=== PATIENT | male | born 1985 | race Caucasian/White ===

== ENCOUNTER 2017-06-23 11:01 | Inpatient (IN) | payer OTHER ==
[~2017-06-23] VITALS: Ht 182.9 cm; Wt 71.1 kg
[2017-06-23 11:38] VITALS: BP 115/73; PULSE 65; RESP 18; TEMP 98.2; O2SAT 97
[2017-06-23] MEDS ORDERED: LOSA25TA PO (11:41)
[2017-06-23] MEDS ORDERED: ASPI81CH6 CHEW (11:41)
[2017-06-23] MEDS ORDERED: CARV3.125 PO (11:41)
[2017-06-23] MEDS ORDERED: CARA1TAB6 PO (11:41)
[2017-06-23] MEDS ORDERED: FAMO1TAB37 PO (11:41)
--- NOTE | 2017-06-23 12:57 | PD ---
HPI Chief Complaint: Psychiatric Symptoms Time Seen by Provider: 12:30 Travel History International Travel<30 days: No Contact w/Intl Traveler<30days: No Traveled to known affect area: No History of Present Illness HPI 31-year-old male presents to the emergency department under [place] act. He was transported here from [facility] after being medically cleared with complaint of chest pain. He was first brought to [place] under [place] act in with a complaint of chest pain was then transported to [facility]. I reviewed his labs and imaging and all are unremarkable. He has history of nonischemic cardiomyopathy with an EF of 40%, polysubstance abuse secondary to cocaine and marijuana, mild CAD, history of congenital heart disease with multiple heart surgeries as a child, anxiety, depression, noncompliance. According to law enforcement report the patient "stated he needed help and he cut himself with a broken beer bottle." On my examination the patient states he is no longer feeling suicidal. He denies homicidal ideations. He does have history of attempted suicide by hanging himself and cutting himself. He says he has been suicidal on and off for the past year. He denies current SI or plan. He denies visual or auditory hallucinations. Reports using cocaine, marijuana, Xanax, alcohol. Symptoms onset when his 8 year relationship ended the other day. Symptoms were exacerbated by a breakup. No known relieving factors. Symptoms are moderate to severe in severity. He has no current emergent medical complaints. He denies chest pain, shortness of breath, abdominal pain, fevers, vomiting. No other modifying factors or associated signs and symptoms. PFSH Past Medical History Bipolar Disorder: Yes Anxiety: Yes Depression: Yes Cardiovascular Problems: Yes Diminished Hearing: No Hypertension: Yes Immunizations Current: Yes Past Surgical History Other Surgery: Yes (CARDIAC SURGERIES X 4 CHILD FOR HEART DEFECT) Social History Alcohol Use: Yes (4 BEERS PER DAY) Tobacco Use: No Substance Use: Yes (ETOH, MARIJUANNA, XANAX, COCAINE) Allergies-Medications (Allergen,Severity, Reaction): Coded Allergies: No Known Allergies (Unverified , 06/23/17) Reported Meds & Prescriptions Reported Meds & Active Scripts Active Reported Carafate (Sucralfate) 1 Gram Tab 1 Gm PO DAILY On empty stomach Pepcid (Famotidine) 20 Mg Tab 20 Mg PO DAILY Losartan (Losartan Potassium) 25 Mg Tab 25 Mg PO DAILY Coreg (Carvedilol) 3.125 Mg Tab 3.125 Mg PO BID Aspirin Low Dose (Aspirin) 81 Mg Chew 81 Mg CHEW DAILY Review of Systems Except as stated in HPI: all other systems reviewed are Neg Physical Exam Narrative GENERAL: Well-nourished, well-developed male patient, in no acute distress SKIN: Warm and dry. HEAD: Atraumatic. Normocephalic. EYES: Pupils equal and round. ENT: Mucosa pink and moist. NECK: Supple. Trachea midline. CARDIOVASCULAR: Regular rate and rhythm. No murmur appreciated. RESPIRATORY: No accessory muscle use. Clear to auscultation. Breath sounds equal bilaterally. GASTROINTESTINAL: Abdomen soft, non-tender, nondistended. Hepatic and splenic margins not palpable. Bowel sounds are active 4 quadrants. MUSCULOSKELETAL: No obvious deformities. No clubbing. No cyanosis. No edema. NEUROLOGICAL: Awake and alert. Oriented 3. No obvious cranial nerve deficits. Motor grossly within normal limits. Normal speech. Moves all extremities. 5/5 strength to all extremities. PSYCHIATRIC: No delusional thought processes. No hallucinations. Data Data Last Documented VS Vital Signs Date Time Temp Pulse Resp B/P (MAP) Pulse Ox O2 Delivery O2 Flow Rate FiO2 06/23/17 11:38 98.2 65 18 115/73 (87) 97 Room Air Orders Orders Psych Screen (06/23/17 12:00) Diet Regular Basic (06/23/17 Lunch) MDM Medical Decision Making Medical Screen Exam Complete: Yes Emergency Medical Condition: Yes Medical Record Reviewed: Yes Differential Diagnosis Depression, anxiety, suicide ideation, medical clearance for psychiatric admission Narrative Course Patient presents under a Broussard act. Physical examination and vital signs are essentially unremarkable. Patient has no medical complaints to report. Psych screen has been ordered. Labs and imaging were reviewed from [facility] and are all unremarkable. Patient is medically cleared for psychiatric evaluation and disposition. Diagnosis Primary Impression: Medical clearance for psychiatric admission Condition: Stable Azra Baugh Jun 23, 2017 12:57
[2017-06-23 17:15] VITALS: BP 106/69; PULSE 82; RESP 18
[2017-06-23 22:54] VITALS: BP 115/63; PULSE 85; RESP 18; TEMP 98.5; O2SAT 97
[2017-06-24 03:13] VITALS: BP 110/63; PULSE 92; RESP 18; TEMP 98.8; O2SAT 99
[2017-06-24 06:57] VITALS: BP 120/66; PULSE 75; RESP 18; TEMP 98.3; O2SAT 96
--- NOTE | 2017-06-24 08:18 | HHI.HP ---
Provisional Diagnosis Admission Date 06/24/2017 Bronson I. 1. Bipolar disorder, presently depressed, moderate 2. Polysubstance abuse Bronson II. Deferred Certification of Person's Competence To Provide Express and Informed Consent I have personally examined Prakash Peguero , a person being served at [facility] on, Jun 24, 2017 08:18. Express and informed consent means consent voluntarily given in writing, by a competent person, after sufficient explanation and disclosure of the subject matter involved to enable the person to make a knowing and willful decision without any element of force, fraud, deceit, duress, or other form of constraint or coercion. This person is 18 years of age or older, is not now known to be incompetent to consent to treatment with a guardian advocate, and does not have a health care surrogate or proxy currently making medical treatment decisions. I have found this person to be one of the following: [x] Competent to provide express and informed consent, as defined above, for voluntary admission to this facility and is competent to provide express and informed consent for treatment. He/she has the consistent capacity to make well reasoned, willful, and knowing decisions concerning his or her medical or mental health treatment. The person fully and consistently understands the purpose of the admission for examination/placement and is fully capable of personally exercising all rights assured under [place] Incompetent to provide express and informed consent to voluntary admission, and this is incompetent to provide express and informed consent to treatment. The person must be transferred to involuntary status and a petition for a guardian advocate filed with the Circuit Court. [] Refusing to provide express and informed consent to voluntary admission but is competent to provide express and informed consent for treatment. The person must be discharged or transferred to involuntary status. Form shall be completed within 24 hours of a person's arrival at the receiving facility and filed in the clinical record of each person: 1. Admitted on a voluntary basis 2. Permitted to provide express and informed consent to his/her own treatment 3. Allowed to transfer from involuntary to voluntary status 4. Prior to permitting a person to consent to his or her own treatment after having been previously found incompetent to consent to treatment. History of Present Illness Capacity: Has Capacity Psych Chief Complaint: Depression, SI HPI Mr. Peguero is a 31-year-old male with a reported history of bipolar disorder and anxiety who presents in transfer from [facility] under a Broussard act. Documentation from [facility] reviewed. Patient apparently presented there initially with chest pain associated with substance use including cocaine. Patient was evaluated by cardiology of [facility] and cleared. Patient does have a history of congenital heart defect status post surgical repair. Patient apparently reported that he had cut himself with a beer bottle prior to admission and so was Broussard acted and sent here to [facility]. Reviewing our electronic medical record, it appears this is patient's first visit to [facility]. Patient seen and examined. Chart reviewed. Case discussed with nursing staff. On my examination today, the patient presents as dysphoric, intermittently tearful. He says that he went through a tough breakup with his girlfriend of 8 years around [place] time. He also has been struggling with joblessness. He has been feeling increasingly depressed with some sleep disturbance. He articulates hopeless and worthless feelings. He says that he was feeling suicidal last week and cut himself superficially with a broken beer bottle. He denies any suicidal ideation presently. Denies any homicidal ideation. Denies any audiovisual hallucinations. No delusional material. The patient does not describe any hypomanic or manic symptoms presently but does describe a history of irritability possibly consistent with hypomania or gene, last occurring in March of last year. The remainder of the psychiatric ROS is negative. The patient has no physical complaints at this time. Past psychiatric history: The patient reports previous psychiatric diagnoses as noted above. He cannot recall any previous medication trials besides trazodone. He is not currently under the care of a psychiatrist. He was admitted most recently at [facility] last year. Patient reports that most recent suicide attempt was by cutting as noted above, and the patient reports that he has a history of previous suicide attempts by cutting. Family history: The patient denies a family history of serious mental illness or suicide. Chemical dependency history: The patient admits to use of Xanax, alcohol, powder cocaine and cannabis. Social history: The patient reports that he recently ended a long-term relationship. He has no children. He has a 10th grade education. He does not work. He denies any active legal issues but has had legal issues in the past. Denies any access to guns or firearms. Denies any history. He lives with his mother and sister and provides contact information for them. Mother Marla is at [phone] and sister Bri is at [phone]. Review of Systems Except as stated in HPI: all other systems reviewed are Neg Past Family Social History Coded Allergies: No Known Allergies (Unverified , 06/23/17) Past Medical History Includes a history of congenital heart defect. Takes medications as listed below. Reported Medications Sucralfate (Carafate) 1 Gram Tab, 1 GM PO DAILY for Ulcer Prevention, #120 TAB 0 Refills On empty stomach 06/23/17 Famotidine (Pepcid) 20 Mg Tab, 20 MG PO DAILY, #60 TAB 0 Refills 06/23/17 Losartan (Losartan) 25 Mg Tab, 25 MG PO DAILY for Blood Pressure Management, # 30 TAB 0 Refills 06/23/17 Carvedilol (Coreg) 3.125 Mg Tab, 3.125 MG PO BID, #60 TAB 0 Refills 06/23/17 Aspirin (Aspirin Low Dose) 81 Mg Chew, 81 MG CHEW DAILY, TAB 0 Refills 06/23/17 Patient's Strengths (min. 2) In a monitored setting. Verbally fluent. Physical Exam Physical exam was completed by provider at outside hospital. On my examination today, the patient appears to be in no acute physical distress. No motor abnormalities noted. No signs of intoxication or withdrawal noted. I do note several very superficial scratches on his left forearm. Labs and vitals reviewed: Vital Signs Vital Signs Date Time Temp Pulse Resp B/P (MAP) Pulse Ox O2 Delivery O2 Flow Rate FiO2 06/24/17 06:57 98.3 75 18 120/66 (84) 96 Room Air Lab Results Laboratories from outside hospital reviewed: CBC reveals mild normocytic anemia with hemoglobin of 11.6. Urine toxicology positive for benzos, cocaine and cannabinoids. CMP reveals mild hypernatremia at 146, mild hypokalemia at 3.2 and mild hypocalcemia at 7.6. Renal and hepatic function are unremarkable. Alcohol level was 105. Tylenol and salicylate level were undetectable. EKG was reportedly performed at outside hospital and was read as normal sinus rhythm , but the waveform is not available for my review nor are any intervals listed. Mental Status Examination Appearance: Appropriate Consciousness: Alert Orientation: x4 Motor Activity: Other (no motor abnormalities noted) Speech: Unremarkable Language: Adequate Fund of Knowledge: Adequate Attention and Concentration: Adequate Memory: Unremarkable Mood: Sad Affect: Sad Thought Process & Associations: Intact, Logical, Linear Thought Content: Appropriate Hallucination Type: None Delusion Type: None Suicidal Ideation: No Suicidal Plan: No Suicidal Intention: No Homicidal Ideation: No Homicidal Plan: No Homicidal Intention: No Insight: Fair Judgment: Impulsive Assessment & Plan Problem List: (1) Bipolar disorder, current episode depressed, severe, without psychotic features ICD Codes: F31.4 - Bipolar disorder, current episode depressed, severe, without psychotic features (2) Polysubstance abuse ICD Codes: F19.10 - Other psychoactive substance abuse, uncomplicated Assessment & Plan 31-year-old male with psychiatric history as detailed above who presents in transfer from outside hospital under a Broussard act. On my examination today, the patient reports several months of worsening mood with recent onset of suicidal ideation and an effort at self injury by cutting his left forearm. Patient denies suicidal ideation presently but remains depressed. This depression coupled with his substance use issues confer risk for ongoing self-harm. Psychiatric hospitalization is indicated presently for safety, observation and stabilization. Admit inpatient. Voluntary status. Check EKG for QTC. Check CBC and CMP in the morning to follow-up laboratory abnormalities. Check TSH. For mood stabilization and initiate Seroquel 50 mg at bedtime with plans to titrate to effect. Patient does have a history of cardiac issues, but these are apparently structural and EKG was read as normal sinus rhythm. I have left a nursing order to hold the Seroquel if the QTC is abnormal. Atarax as needed for anxiety, Benadryl as needed for EPS or sleep. CIWA scale with Ativan for the management of any withdrawal. Seizure precautions. Thiamine and folate. R /B/A for all medications discussed with patient. Vitals every shift. Counselor to see and obtain collateral. Disposition planning. Estimated length of stay: 3-5 days. Discharge Planning Pending psychiatric stabilization Request HC Surrog/Guard Advoc?: No Zander Son MD Jun 24, 2017 08:18
[2017-06-24] MEDS ORDERED: ALUMINUM/MAGNESIUM/SIMETH 30 ML CUP PO PRN (08:30)
[2017-06-24] MEDS ORDERED: MAGNESIUM HYDROXIDE SUSP 30 ML CUP PO PRN (08:30)
[2017-06-24] MEDS ORDERED: ACETAMINOPHEN 325 MG TAB PO PRN (08:30)
[2017-06-24] MEDS ORDERED: LORazepam 2 MG TAB PO PRN (08:30)
[2017-06-24] MEDS ORDERED: hydrOXYzine HCL 50 MG TAB PO PRN (08:30)
[2017-06-24] MEDS ORDERED: NICOTINE 21 MG/24 HR PATCH T-DERMAL PRN (08:30)
[2017-06-24] MEDS ORDERED: LORazepam 1 MG TAB PO PRN (08:30)
[2017-06-24] MEDS ORDERED: diphenhydrAMINE HCL 50 MG/ML VIAL IM PRN (08:30)
[2017-06-24] MEDS ORDERED: FLUMAZENIL 0.5 MG/5 ML VIAL IV PUSH PRN (08:30)
[2017-06-24] MEDS ORDERED: LORazepam 2 MG/ML VIAL IV PUSH PRN ×4 (08:30)
[2017-06-24] MEDS: FAMOTIDINE 20 MG TAB PO SCH (10:22)
[2017-06-24] MEDS: ASPIRIN 81 MG CHEW TAB CHEW SCH (10:23)
[2017-06-24] MEDS: FOLIC ACID 1 MG TAB PO SCH (10:23)
[2017-06-24] MEDS: MULTIVITAMINS/MINERALS THERAPEUTIC TAB PO SCH (10:24)
[2017-06-24] MEDS: THIAMINE HCL 100 MG TAB PO SCH (10:24)
[2017-06-24] MEDS: SUCRALFATE 1 GM TAB PO SCH (11:00)
[2017-06-24 12:16] VITALS: BP 123/72; PULSE 81; RESP 19; TEMP 98; O2SAT 99
[2017-06-24] MEDS: CARVEDILOL 3.125 MG TAB PO SCH ×2 (12:45→21:21)
[2017-06-24] MEDS: LOSARTAN 25 MG TAB PO SCH (12:45)
[2017-06-24] MEDS ORDERED: QUEtiapine FUMARATE 100 MG TAB PO SCH (21:00)
[2017-06-25 07:24] LABS: AUTOMATED NEUTROPHIL # 4.6 TH/MM3 (1.8-7.7); BASOPHIL # 0.1 TH/MM3 (0-0.2); BASOPHIL % 1.3 % (0.0-2.0); EOSINOPHIL # 0.4 TH/MM3 (0-0.4); HEMOGLOBIN 16.2 GM/DL (13.0-17.0); LYMPH % 24.4 % (9.0-44.0); LYMPHOCYTE # 1.9 TH/MM3 (1.0-4.8); MEAN CELL VOLUME 89.3 FL (80.0-100.0); MEAN CORPUSCULAR HEMOGLOBIN 31.3 PG (27.0-34.0); MEAN CORPUSCULAR HGB CONC 35.1 % (32.0-36.0); MEAN PLATELET VOLUME 8.1 FL (7.0-11.0); NEUT % 57.3 % (16.0-70.0); PLATELET COUNT 201 TH/MM3 (150-450); RED BLOOD COUNT 5.15 MIL/MM3 (4.50-5.90); RED CELL DISTRIBUTION WIDTH 13.6 % (11.6-17.2)
[2017-06-25 07:44] LABS: ALBUMIN 4.1 GM/DL (3.4-5.0); ALT (GPT) 22 U/L (12-78); AST (GOT) 20 U/L (15-37); BICARBONATE 29.3 MEQ/L (21.0-32.0); BLOOD UREA NITROGEN 14 MG/DL (7-18); CHLORIDE 103 MEQ/L (98-107); CHOLESTEROL 141 MG/DL (120-200); CREATININE 1.09 MG/DL (0.60-1.30); GLOMERULAR FILTRATION RATE 79 ML/MIN (>89); GLUCOSE,RANDOM 83 MG/DL (74-106); SODIUM (NA) 138 MEQ/L (136-145)
[2017-06-25 07:55] LABS: ALKALINE PHOSPHATASE 91 U/L (45-117); CHOLESTEROL/ HDL RATIO 3.56 RATIO; HDL CHOLESTEROL 39.5 MG/DL (40.0-60.0); LDL CHOLESTEROL 82 MG/DL (0-99); TOTAL PROTEIN 7.7 GM/DL (6.4-8.2); TRIGLYCERIDES 100 MG/DL (42-150)
[2017-06-25] MEDS: FAMOTIDINE 20 MG TAB PO SCH (08:32)
[2017-06-25] MEDS: ASPIRIN 81 MG CHEW TAB CHEW SCH (08:32)
[2017-06-25] MEDS: CARVEDILOL 3.125 MG TAB PO SCH ×2 (08:32→21:00)
[2017-06-25] MEDS: FOLIC ACID 1 MG TAB PO SCH (08:33)
[2017-06-25] MEDS: MULTIVITAMINS/MINERALS THERAPEUTIC TAB PO SCH (08:33)
[2017-06-25] MEDS: THIAMINE HCL 100 MG TAB PO SCH (08:33)
[2017-06-25] MEDS: LOSARTAN 25 MG TAB PO SCH (08:33)
[2017-06-25] MEDS: SUCRALFATE 1 GM TAB PO SCH (10:52)
--- NOTE | 2017-06-25 15:09 | HHI.PYPN ---
Subjective Chief Complaint: Depression, SI Remarks Patient seen for follow-up, chart reviewed. Discussion with staff reported patient had been feeling depressed with 90 suicide ideations in the context of her recent breakup with longtime girlfriend. Patient was found in the room noted to be calm and cooperative. Patient states that he has been feeling depressed due to his recent breakup with his girlfriend, as well as continued alcohol and cocaine use. Patient reports having had intermittent sleep recently , denying suicide ideations or perceptual disturbances at this time and states that his mood has been "okay". Review of Systems Except as stated in HPI: all other systems reviewed are Neg Mental Status Examination Appearance: Appropriate Consciousness: Alert Orientation: x4 Motor Activity: Other (no motor abnormalities noted) Speech: Unremarkable Language: Adequate Fund of Knowledge: Adequate Attention and Concentration: Adequate Memory: Unremarkable Mood: Sad Affect: Sad Thought Process & Associations: Intact, Logical, Linear Thought Content: Appropriate Hallucination Type: None Delusion Type: None Suicidal Ideation: No Suicidal Plan: No Suicidal Intention: No Homicidal Ideation: No Homicidal Plan: No Homicidal Intention: No Insight: Fair Judgment: Impulsive Results Labs Labs reviewed Test 06/25/17 07:02 White Blood Count 8.0 TH/MM3 Red Blood Count 5.15 MIL/MM3 Hemoglobin 16.2 GM/DL Hematocrit 46.0 % Mean Corpuscular Volume 89.3 FL Mean Corpuscular Hemoglobin 31.3 PG Mean Corpuscular Hemoglobin Concent 35.1 % Red Cell Distribution Width 13.6 % Platelet Count 201 TH/MM3 Mean Platelet Volume 8.1 FL Neutrophils (%) (Auto) 57.3 % Lymphocytes (%) (Auto) 24.4 % Monocytes (%) (Auto) 12.0 % Eosinophils (%) (Auto) 5.0 % Basophils (%) (Auto) 1.3 % Neutrophils # (Auto) 4.6 TH/MM3 Lymphocytes # (Auto) 1.9 TH/MM3 Monocytes # (Auto) 1.0 TH/MM3 Eosinophils # (Auto) 0.4 TH/MM3 Basophils # (Auto) 0.1 TH/MM3 CBC Comment DIFF FINAL Differential Comment Blood Urea Nitrogen 14 MG/DL Creatinine 1.09 MG/DL Random Glucose 83 MG/DL Total Protein 7.7 GM/DL Albumin 4.1 GM/DL Calcium Level 9.0 MG/DL Alkaline Phosphatase 91 U/L Aspartate Amino Transf (AST/SGOT) 20 U/L Alanine Aminotransferase (ALT/SGPT) 22 U/L Total Bilirubin 2.0 MG/DL Sodium Level 138 MEQ/L Potassium Level 4.2 MEQ/L Chloride Level 103 MEQ/L Carbon Dioxide Level 29.3 MEQ/L Anion Gap 6 MEQ/L Estimat Glomerular Filtration Rate 79 ML/MIN Triglycerides Level 100 MG/DL Cholesterol Level 141 MG/DL LDL Cholesterol 82 MG/DL HDL Cholesterol 39.5 MG/DL Cholesterol/HDL Ratio 3.56 RATIO Thyroid Stimulating Hormone 3rd Gen 3.250 uIU/ML Vitals/IOs Vital Signs Date Time Temp Pulse Resp B/P (MAP) Pulse Ox O2 Delivery O2 Flow Rate FiO2 06/24/17 12:16 98.0 81 19 123/72 (89) 99 06/24/17 06:57 Room Air Assessment & Plan Problem List: (1) Bipolar disorder, current episode depressed, severe, without psychotic features ICD Codes: F31.4 - Bipolar disorder, current episode depressed, severe, without psychotic features (2) Polysubstance abuse ICD Codes: F19.10 - Other psychoactive substance abuse, uncomplicated Assessment & Plan Patient this time continues report feeling depressed, had recent suicide ideations and recent suicide attempt via cutting himself with a beer bottle. Patient denies any suicide ideations today. Patient appear to be motivated to engage in rehabilitation programs which will be continued to be explored. Seroquel increased to 100 mg p.o. at bedtime for mood stabilization. Continue to monitor mood and behavior. Discharge planning in progress. Justification for Cont. Inpt. At risk for further decompensation if at lower level of care Discharge Planning Return back to his residence upon psychiatric stabilization. Request HC Surrog/Guard Advoc?: Sly Delgado MD Jun 25, 2017 15:09
[2017-06-25 18:13] VITALS: BP 112/61; PULSE 84; RESP 16; TEMP 97.7; O2SAT 96
[2017-06-25 20:56] VITALS: BP 108/56; PULSE 77; RESP 18; TEMP 97.6; O2SAT 98
[2017-06-25] MEDS ORDERED: QUEtiapine FUMARATE 100 MG TAB PO SCH (21:00)
[2017-06-26 04:51] VITALS: BP 113/61; PULSE 72; RESP 18; TEMP 98; O2SAT 98
[2017-06-26] MEDS: LOSARTAN 25 MG TAB PO SCH ×2 (08:34→09:00)
[2017-06-26] MEDS: FOLIC ACID 1 MG TAB PO SCH (08:35)
[2017-06-26] MEDS: THIAMINE HCL 100 MG TAB PO SCH (08:35)
[2017-06-26] MEDS: ASPIRIN 81 MG CHEW TAB CHEW SCH (08:35)
[2017-06-26] MEDS: MULTIVITAMINS/MINERALS THERAPEUTIC TAB PO SCH (08:35)
[2017-06-26] MEDS: FAMOTIDINE 20 MG TAB PO SCH (08:35)
[2017-06-26] MEDS: CARVEDILOL 3.125 MG TAB PO SCH ×2 (08:45→21:00)
[2017-06-26] MEDS: SUCRALFATE 1 GM TAB PO SCH ×2 (11:30→14:55)
--- NOTE | 2017-06-26 15:55 | HHI.PYPN ---
Subjective Chief Complaint: Depression, SI Remarks Patient seen for follow, chart reviewed. Discussion nursing staff reported the patient had been requesting discharge but has been compliant with treatment. Patient was found dayroom B, cooperative. Patient states that he has been feeling "okay" reporting having Farnaz continues to report feeling depressed but denies any suicide ideations at this time. Patient denies any perceptual disturbances or delusions. Patient reports having spoke with his mother and sister which he states went well. Patient also endorses being interested involving himself in NA meetings upon discharge. Review of Systems Except as stated in HPI: all other systems reviewed are Neg Mental Status Examination Appearance: Appropriate Consciousness: Alert Orientation: x4 Motor Activity: Other (no motor abnormalities noted) Speech: Unremarkable Language: Adequate Fund of Knowledge: Adequate Attention and Concentration: Adequate Memory: Unremarkable Mood: Sad Affect: Sad (Less so today) Thought Process & Associations: Intact, Logical, Linear Thought Content: Appropriate Hallucination Type: None Delusion Type: None Suicidal Ideation: No Suicidal Plan: No Suicidal Intention: No Homicidal Ideation: No Homicidal Plan: No Homicidal Intention: No Insight: Fair Judgment: Impulsive Results Vitals/IOs Vital Signs Date Time Temp Pulse Resp B/P (MAP) Pulse Ox O2 Delivery O2 Flow Rate FiO2 06/26/17 04:51 98.0 72 18 113/61 (78) 98 06/24/17 06:57 Room Air Assessment & Plan Problem List: (1) Bipolar disorder, current episode depressed, severe, without psychotic features ICD Codes: F31.4 - Bipolar disorder, current episode depressed, severe, without psychotic features (2) Polysubstance abuse ICD Codes: F19.10 - Other psychoactive substance abuse, uncomplicated Assessment & Plan Patient this time noted to have lessening depressed mood, denying any suicide ideations at this time. We will continue to titrate quetiapine to 200 mg p.o. at bedtime for mood stabilization. Continue to monitor mood and behavior. Continue to encourage patient to participate in groups and activities. Discharge planning in progress. Justification for Cont. Inpt. At risk for further decompensation if at lower level of care Discharge Planning Patient return back to his residence once psychiatrically stable. Request HC Surrog/Guard Advoc?: Sly Delgado MD Jun 26, 2017 15:55
[2017-06-26 18:32] VITALS: BP 123/74; PULSE 75; RESP 16; TEMP 98.2; O2SAT 97
[2017-06-26] MEDS ORDERED: QUEtiapine FUMARATE 100 MG TAB PO SCH (21:00)
[2017-06-26] MEDS: diphenhydrAMINE HCL 50 MG CAP PO PRN (21:36)
--- NOTE | 2017-06-26 22:48 | EKG ---
Date Performed: 06/25/2017 Time Performed: 14:02:46 PTAGE: 31 years EKG: Sinus rhythm Possible left atrial abnormality Septal ST changes are nonspecific Borderline ECG NO PREVIOUS TRACING DOCTOR: Joaquin Andrade Interpretating Date/Time 06/26/2017 22:47:04
[2017-06-27 06:23] VITALS: BP 108/55; PULSE 82; RESP 17; TEMP 98.1; O2SAT 96
[2017-06-27] MEDS: MULTIVITAMINS/MINERALS THERAPEUTIC TAB PO SCH (08:58)
[2017-06-27] MEDS: FOLIC ACID 1 MG TAB PO SCH (08:58)
[2017-06-27] MEDS: ASPIRIN 81 MG CHEW TAB CHEW SCH (08:58)
[2017-06-27] MEDS: LOSARTAN 25 MG TAB PO SCH (08:58)
[2017-06-27] MEDS: CARVEDILOL 3.125 MG TAB PO SCH ×2 (08:58→21:00)
[2017-06-27] MEDS: THIAMINE HCL 100 MG TAB PO SCH (08:58)
[2017-06-27] MEDS: FAMOTIDINE 20 MG TAB PO SCH (08:58)
[2017-06-27] MEDS: SUCRALFATE 1 GM TAB PO SCH (11:30)
--- NOTE | 2017-06-27 17:00 | HHI.PYPN ---
Subjective Chief Complaint: Depression, SI Remarks Patient seen for follow-up, chart reviewed. Discussion nursing staff reported patient felt somewhat anxious this morning did receive as needed Atarax which appeared to help. Patient was found persuading groups and activities are to become cooperative. Patient reports feeling somewhat anxious this morning and feels that it might have been looking forward to discharge. Patient states that he is feeling "better" feelings less depressed today continues to be worried about his discharge plan. Patient states he want to continue follow-up outpatient, continued to engage in treatment as well as engage in rehabilitation program as he states he wants to make a better life for himself or make a change. Patient denies any suicide ideations at this time. Review of Systems Except as stated in HPI: all other systems reviewed are Neg Mental Status Examination Appearance: Appropriate Consciousness: Alert Orientation: x4 Motor Activity: Other (no motor abnormalities noted) Speech: Unremarkable Language: Adequate Fund of Knowledge: Adequate Attention and Concentration: Adequate Memory: Unremarkable Mood: Sad (less so today) Affect: Appropriate Thought Process & Associations: Intact, Logical, Linear Thought Content: Appropriate Hallucination Type: None Delusion Type: None Suicidal Ideation: No Suicidal Plan: No Suicidal Intention: No Homicidal Ideation: No Homicidal Plan: No Homicidal Intention: No Insight: Fair Judgment: Impulsive Results Vitals/IOs Vital Signs Date Time Temp Pulse Resp B/P (MAP) Pulse Ox O2 Delivery O2 Flow Rate FiO2 06/27/17 06:23 98.1 82 17 108/55 (72) 96 06/24/17 06:57 Room Air Intake and Output 06/27/17 06/27/17 06/28/17 08:00 16:00 00:00 Intake Total 240 ml Balance 240 ml Assessment & Plan Problem List: (1) Bipolar disorder, current episode depressed, severe, without psychotic features ICD Codes: F31.4 - Bipolar disorder, current episode depressed, severe, without psychotic features (2) Polysubstance abuse ICD Codes: F19.10 - Other psychoactive substance abuse, uncomplicated Assessment & Plan Patient continues to have improvement of mood, not endorsing suicidal ideations today but did not note having some anxiety which is likely related to his upcoming discharge. We will continue to titrate quetiapine to 300 mg p.o. at bedtime for mood stabilization and depression. Patient continues to improve patient lying for discharge tomorrow. Continue to monitor with behavior. Discharge planning in progress. Justification for Cont. Inpt. At risk for further decompensation if at lower level of care. Discharge Planning Patient to return back to his residence when psychiatrically stable. Request HC Surrog/Guard Advoc?: Sly Delgado MD Jun 27, 2017 17:00
[2017-06-27 18:15] VITALS: BP 111/60; PULSE 78; RESP 18; TEMP 98.2
[2017-06-27] MEDS ORDERED: QUEtiapine FUMARATE 300 MG TAB PO SCH (21:00)
[2017-06-27] MEDS: diphenhydrAMINE HCL 50 MG CAP PO PRN (21:30)
[2017-06-28 05:40] VITALS: BP 99/56; PULSE 79; RESP 18; TEMP 98; O2SAT 97
[2017-06-28] MEDS: LOSARTAN 25 MG TAB PO SCH (08:12)
[2017-06-28] MEDS: FOLIC ACID 1 MG TAB PO SCH (08:12)
[2017-06-28] MEDS: THIAMINE HCL 100 MG TAB PO SCH (08:13)
[2017-06-28] MEDS: FAMOTIDINE 20 MG TAB PO SCH (08:13)
[2017-06-28] MEDS: MULTIVITAMINS/MINERALS THERAPEUTIC TAB PO SCH (08:13)
[2017-06-28] MEDS: CARVEDILOL 3.125 MG TAB PO SCH (08:13)
[2017-06-28] MEDS: ASPIRIN 81 MG CHEW TAB CHEW SCH (08:13)
[2017-06-28] MEDS ORDERED: THERM PO (09:02)
[2017-06-28] MEDS ORDERED: QUET1TAB10 PO (09:02)
[2017-06-28] MEDS ORDERED: FAMO1TAB37 PO (09:02)
[2017-06-28] MEDS ORDERED: CARV3.125 PO (09:02)
[2017-06-28] MEDS ORDERED: THIA100 PO (09:02)
[2017-06-28] MEDS ORDERED: ASPI81CH6 CHEW (09:02)
[2017-06-28] MEDS ORDERED: LOSA25TA PO (09:02)
[2017-06-28] MEDS ORDERED: FOLI1TAB6 PO (09:02)
--- NOTE | 2017-06-28 09:07 | HHI.DS ---
Psychiatry Discharge Summary Inpatient Psychiatric care?: Yes Advance Directive: No Reason Not Provided: Due to Patient Condition Mental Health AdvanceDirective: No Health Care Proxy: No Admission Admission Date Jun 24, 2017 at 08:18 Admission Diagnosis: (1) Bipolar disorder, current episode depressed, severe, without psychotic features ICD Code: F31.4 - Bipolar disorder, current episode depressed, severe, without psychotic features (2) Polysubstance abuse ICD Code: F19.10 - Other psychoactive substance abuse, uncomplicated Brief History Mr. Peguero is a 31-year-old male with a reported history of bipolar disorder and anxiety who presents in transfer from [facility] under a Broussard act. Documentation from [facility] reviewed. Patient apparently presented there initially with chest pain associated with substance use including cocaine. Patient was evaluated by cardiology of [facility] and cleared. Patient does have a history of congenital heart defect status post surgical repair. Patient apparently reported that he had cut himself with a beer bottle prior to admission and so was Broussard acted and sent here to [facility]. Reviewing our electronic medical record, it appears this is patient's first visit to [facility]. Patient seen and examined. Chart reviewed. Case discussed with nursing staff. On my examination today, the patient presents as dysphoric, intermittently tearful. He says that he went through a tough breakup with his girlfriend of 8 years around Clifford time. He also has been struggling with joblessness. He has been feeling increasingly depressed with some sleep disturbance. He articulates hopeless and worthless feelings. He says that he was feeling suicidal last week and cut himself superficially with a broken beer bottle. He denies any suicidal ideation presently. Denies any homicidal ideation. Denies any audiovisual hallucinations. No delusional material. The patient does not describe any hypomanic or manic symptoms presently but does describe a history of irritability possibly consistent with hypomania or gene, last occurring in March of last year. The remainder of the psychiatric ROS is negative. The patient has no physical complaints at this time. Past psychiatric history: The patient reports previous psychiatric diagnoses as noted above. He cannot recall any previous medication trials besides trazodone. He is not currently under the care of a psychiatrist. He was admitted most recently at [facility] last year. Patient reports that most recent suicide attempt was by cutting as noted above, and the patient reports that he has a history of previous suicide attempts by cutting. Family history: The patient denies a family history of serious mental illness or suicide. Chemical dependency history: The patient admits to use of Xanax, alcohol, powder cocaine and cannabis. Social history: The patient reports that he recently ended a long-term relationship. He has no children. He has a 10th grade education. He does not work. He denies any active legal issues but has had legal issues in the past. Denies any access to guns or firearms. Denies any history. He lives with his mother and sister and provides contact information for them. Mother Marla is at [phone] and sister Bri is at [phone]. Tobacco Use In Past 30 Days: No Tobacco Past 30 Days Alcohol Use: 4 or More Times Per Week Hospital Course Patient is 31-year-old male with a reported history of bipolar disorder and anxiety the patient is one previous psychiatric admission at [facility] 2017, previous suicide attempt by cutting, with a substance use history significant for cocaine, and alcohol use who presents in transfer from [facility] under a Broussard act for recent suicidal attempt via cutting in the context of acute alcohol and cocaine intoxication which patient was admitted to the patient psychiatry for further evaluation and management. Patient was placed on CIWA which he was managed for withdrawal symptoms, started on quetiapine and titrated up to 300mg at bedtime which he responded well to. Patient during the course of admission had been noted to have depressed mood but resolved as he responded well to treatment, was noted to be cooperative with staff, no behavioral dyscontrol during admission and was noted to have stable mood. Upon discharge patient reported feeling good denied any perceptual disturbances nor suicidal ideations or homicidal ideations. Patient agreed to continue treatment and follow up appointments for continuity of care. Patient agreed to engage in a substance rehabilitation program, counseled on importance of abstinence from substance use.. Patient advised to call 911 or go nearest ED in case of emergency. Patient agreed with plan. Results Blood Pressure 99 / 56 Vital Signs Date Time Temp Pulse Resp B/P (MAP) Pulse Ox O2 Delivery O2 Flow Rate FiO2 06/28/17 05:40 98.0 79 18 99/56 (70) 97 Laboratory Results Test 06/25/17 07:02 Cholesterol Level 141 MG/DL (120-200) HDL Cholesterol 39.5 MG/DL (40.0-60.0) Hemoglobin A1c 5.0 % (4.3-6.0) LDL Cholesterol 82 MG/DL (0-99) Triglycerides Level 100 MG/DL (42-150) Summary of Procedures none Pending results at discharge: No Medications # of Antipsychotic meds at D/C: 1 Approp Antipsych med options 1 - Minimum of three failed multiple trials of monotherapy. 2 - Documented plan to taper to monotherapy due to previous use of multiple meds OR cross-taper in progress at D/C. 3 - Documentation of augmentation of Clozapine. 4 - Justification other than those listed in allowable values 1-3, document here : Discharge Discharge Date: Jun 28, 2017 Discharge Diagnosis: (1) Bipolar disorder, current episode depressed, severe, without psychotic features ICD Code: F31.4 - Bipolar disorder, current episode depressed, severe, without psychotic features (2) Polysubstance abuse ICD Code: F19.10 - Other psychoactive substance abuse, uncomplicated Pt Condition on Discharge: Stable Discharge Disposition: Discharge Home Discharge Instructions Diet Instructions: As Tolerated, No Restrictions Activities you can perform: Regular-No Restrictions Discharge Time > 30 minutes Mental Status Examination Appearance: Appropriate Consciousness: Alert Orientation: x4 Motor Activity: Other (no motor abnormalities noted) Speech: Unremarkable Language: Adequate Fund of Knowledge: Adequate Attention and Concentration: Adequate Memory: Unremarkable Mood: Sad (less so today) Affect: Appropriate Thought Process & Associations: Intact, Logical, Linear Thought Content: Appropriate Hallucination Type: None Delusion Type: None Suicidal Ideation: No Suicidal Plan: No Suicidal Intention: No Homicidal Ideation: No Homicidal Plan: No Homicidal Intention: No Insight: Fair Judgment: Impulsive Discharge/Advance Care Plan Health Problems: (1) Bipolar disorder, current episode depressed, severe, without psychotic features (2) Polysubstance abuse Goals to promote your health * To prevent worsening of your condition and complications * To maintain your health at the optimal level Directions to meet your goals Take your medications as prescribed Follow your dietary instruction Follow activity as directed Keep your appointments as scheduled Take your immunizations and boosters as scheduled If your symptoms worsen call your PCP, if no PCP go to Urgent Care Center or Emergency Room For 20/11 questions related to your inpatient stay or results of tests pending at discharge, please contact Dr. Sly Banegas at Smoking is Dangerous to Your Health. Avoid second hand smoking Sly Banegas MD Jun 28, 2017 09:07
[2017-06-28] MEDS: SUCRALFATE 1 GM TAB PO SCH (10:48)
== END 2017-06-28 15:54 | disposition home or self-care (01) | DRG 885 ==
LOC: NEPJ 11:01 → NEDA 06-24 08:18 → H260 06-24 10:30
PROVIDERS: ADMIT Student in an Organized Health Care Education/Training Program; ATTEND Student in an Organized Health Care Education/Training Program
DX: F31.4 Bipolar disorder, current episode depressed, severe, without psychotic features (principal); I42.9 Cardiomyopathy, unspecified; F19.10 Other psychoactive substance abuse, uncomplicated; Z87.74 Personal history of (corrected) congenital malformations of heart and circulatory system; Z79.82 Long term (current) use of aspirin
CPT/HCPCS: 80053; 80061; 83036; 84443; 85025; 93005; Q0163